=== PATIENT | female | born 1985 | race Two or more races ===

== ENCOUNTER 2019-06-16 18:38 | Emergency (ER) | payer MEDICAID, OTHER ==
[~2019-06-16] VITALS: Ht 152.4 cm; Wt 86.2 kg
[2019-06-16 20:23] LABS: Basophils # (auto) 0 uL; Basophils % (auto) 0.3 % (0.0-2.0); Eosinophils # (auto) 0.1 uL; Eosinophils % (auto) 0.8 % (0.0-7.0); Hematocrit 34.1 % (36.0-46.0); Hemoglobin 11.9 g/dL (12.2-16.2); Lymphocytes # (auto) 1.7 uL; Lymphocytes % (auto) 15.2 % (10.0-50.0); Mean Corpuscular Hemoglobin 28.7 pg (28.0-32.0); Mean Corpuscular Hgb Conc. 34.8 g/dL (32.0-36.0); Mean Corpuscular Volume 82.5 fL (80.0-100.0); Monocytes # (auto) 0.5 uL; Monocytes % (auto) 4.7 % (0.0-12.0); Neutrophils # (auto) 9.1 uL; Platelet Count (auto) 176 10^3/uL (140-450); Red Blood Cells 4.13 10^6/uL (4.0-5.20); Red Cell Distribution Width 13.9 % (11.8-14.3); White Blood Cell 11.5 10^3/uL (4.4-10.8)
[2019-06-16 20:46] LABS: Potassium 3.1 mmol/L (3.5-5.1)
[2019-06-16 20:51] LABS: Albumin 2.8 g/dL (3.4-5.0); BUN/Creatinine Ratio 16.1; Calcium 9.5 mg/dL (8.5-10.1)
[2019-06-16 20:53] LABS: Bilirubin, Total 0.1 mg/dL (0.2-1.0); Total Protein 6.9 g/dL (6.4-8.2)
[2019-06-16 21:16] LABS: Urine Bacteria FEW /hpf (None Seen); Urine Blood Negative /uL (Negative); Urine Specific Gravity 1.015 (1.001-1.035); Urine WBC 1 /hpf (0 - 5)
[2019-06-16] MEDS ORDERED: KETOROLAC TROMETH 30 MG/ML 1ML VIAL IV ONE (21:30)
[2019-06-16] MEDS ORDERED: SODIUM CHLORIDE 0.9% 1,000 ML IV ONE ×2 (21:30)
[2019-06-16] MEDS ORDERED: ACETAMINOPHEN 325 MG TAB PO ONE (22:00)
[2019-06-16] MEDS ORDERED: POTASSIUM EFFERVESENT TAB 25 MEQ PO ONE (22:00)
[2019-06-16 22:09] VITALS: BP 99/65
== END 2019-06-16 23:32 | disposition home or self-care (01) ==
LOC: EDBD 18:38 → ER 18:38
DX: O20.0 Threatened abortion (principal); O26.892 Other specified pregnancy related conditions, second trimester; E87.6 Hypokalemia; Z88.0 Allergy status to penicillin; Z88.8 Allergy status to other drugs, medicaments and biological substances; Z3A.18 18 weeks gestation of pregnancy
CPT/HCPCS: 36415; 76805; 80053; 81001; 84702; 85025; 99284; J7030

== ENCOUNTER 2019-08-15 17:50 | Observation (INO) | payer MEDICAID ==
[~2019-08-15] VITALS: Ht 152.4 cm; Wt 81.6 kg
[2019-08-15] MEDS ORDERED: TERBUTALINE SULFATE 1 MG/ML 1ML VIAL SC ONE ×3 (19:00→23:30)
[2019-08-15] MEDS ORDERED: LACTATED RINGER'S 1,000 ML IV ONE (20:30)
[2019-08-15 21:41] LABS: Albumin 2.5 g/dL (3.4-5.0); Calcium 8.8 mg/dL (8.5-10.1); Potassium 3.2 mmol/L (3.5-5.1)
[2019-08-15 21:45] LABS: BUN/Creatinine Ratio 13.7; Bilirubin, Total 0.1 mg/dL (0.2-1.0); Total Protein 6.9 g/dL (6.4-8.2)
[2019-08-15] MEDS ORDERED: ENO40SY SC (23:00)
[2019-08-15] MEDS ORDERED: PREN-96 PO (23:02)
[2019-08-16] MEDS ORDERED: LACTATED RINGER'S 1,000 ML IV SCH (00:30)
== END 2019-08-16 07:35 | disposition home or self-care (01) | DRG 566 ==
LOC: LDRP 17:50 → UNDOADMOB 17:50
PROVIDERS: ADMIT Specialist; ATTEND Specialist
DX: O62.9 Abnormality of forces of labor, unspecified (principal); O26.893 Other specified pregnancy related conditions, third trimester; R00.0 Tachycardia, unspecified; R51 Headache; T48.6X5A Adverse effect of antiasthmatics, initial encounter; Z3A.31 31 weeks gestation of pregnancy
CPT/HCPCS: 36415; 59025; 76815; 80053; 81002; 87210; 94760; 96372; 99284; G0378; J3105; 96365; 96366

== ENCOUNTER 2020-05-26 20:54 | Emergency (ER) | payer MEDICAID ==
[~2020-05-26] VITALS: Ht 152.4 cm; Wt 81.6 kg
[~2020-05-26 20:54] MED LIST: ENO40SY SC; PREN-96 PO
[2020-05-26] MEDS ORDERED: ONDANSETRON HCL 4 MG/2 ML VIAL IV ONE (21:30)
[2020-05-26] MEDS ORDERED: MORPHINE SULF INJ 2 MG/ML SYRINGE 1ML IV ONE (21:30)
[2020-05-26 22:31] LABS: Basophils # (auto) 0 10 ^3/uL (0-0.2); Basophils % (auto) 0.4 % (0.0-2.0); Eosinophils # (auto) 0.3 10 ^3/uL (0-0.8); Eosinophils % (auto) 4.5 % (0.0-7.0); Hematocrit 32.3 % (36.0-46.0); Hemoglobin 10.9 g/dL (12.2-16.2); Lymphocytes # (auto) 1.9 10 ^3/uL (0.4-5.4); Lymphocytes % (auto) 27.3 % (10.0-50.0); Mean Corpuscular Hemoglobin 28.9 pg (28.0-32.0); Mean Corpuscular Hgb Conc. 33.8 g/dL (32.0-36.0); Mean Corpuscular Volume 85.5 fL (80.0-100.0); Monocytes # (auto) 0.4 10 ^3/uL (0-1.3); Neutrophils # (auto) 4.2 10 ^3/uL (1.6-8.6); Neutrophils % (auto) 61.8 % (37.0-80.0); Platelet Count (auto) 227 10^3/uL (140-450); Red Blood Cells 3.78 10^6/uL (4.0-5.20); Red Cell Distribution Width 14.3 % (11.8-14.3); White Blood Cell 6.9 10^3/uL (4.4-10.8)
[2020-05-26 22:48] LABS: Calcium 8.4 mg/dL (8.5-10.1); Potassium 3.4 mmol/L (3.5-5.1)
[2020-05-26 22:53] LABS: BUN/Creatinine Ratio 21.1; Bilirubin, Total 0.2 mg/dL (0.2-1.0); Total Protein 6.6 g/dL (6.4-8.2)
[2020-05-27 01:00] VITALS: BP 117/72
[2020-05-27] MEDS ORDERED: ONDANSETRON HCL 4 MG/2 ML VIAL IV ONE (01:30)
[2020-05-27] MEDS ORDERED: HYDROmorphone HCL 2 MG/ML VL IV ONE (01:30)
== END 2020-05-27 02:23 | disposition home or self-care (01) ==
LOC: EDBD 20:54 → ER 20:54
DX: R10.33 Periumbilical pain (principal); Z98.890 Other specified postprocedural states; Z88.0 Allergy status to penicillin; Z88.6 Allergy status to analgesic agent
CPT/HCPCS: 36415; 74176; 80053; 85025; 96374; 96375; 96376; 99284; J1170; J2270; J2405